=== PATIENT | female | born 1955 ===

== ENCOUNTER 2018-07-03 09:51 | Outpatient (CLI) | payer OTHER | END 2018-07-03 10:10 | disposition home or self-care (01) | LOC: OFIC 805 09:51 | DX: H92.02 Otalgia, left ear (principal); R59.0 Localized enlarged lymph nodes; H61.23 Impacted cerumen, bilateral; J31.2 Chronic pharyngitis ==

== ENCOUNTER 2019-09-15 11:54 | Outpatient (CLI) | payer OTHER | END 2019-09-15 12:20 | disposition home or self-care (01) | LOC: SONOGRAMA 11:54 | PROVIDERS: ATTEND Urology | DX: R31.21 Asymptomatic microscopic hematuria (principal) ==

== ENCOUNTER 2020-10-13 10:20 | Outpatient (CLI) | payer OTHER | END 2020-10-13 10:25 | disposition home or self-care (01) | LOC: TOM 10:20 | PROVIDERS: ATTEND Surgery | DX: Q61.01 Congenital single renal cyst (principal); K43.0 Incisional hernia with obstruction, without gangrene ==

== ENCOUNTER → 2020-11-15 08:43 | Outpatient (CLI) | payer OTHER | END | disposition home or self-care (01) | LOC: LAB 08:43 | PROVIDERS: ATTEND Surgery | DX: D35.02 Benign neoplasm of left adrenal gland (principal) ==

== ENCOUNTER 2021-10-23 14:42 | Outpatient (CLI) | payer OTHER | END 2021-10-23 15:01 | disposition home or self-care (01) | LOC: MAMO-SONO 14:42 | PROVIDERS: ATTEND Obstetrics & Gynecology | DX: N63.10 Unspecified lump in the right breast, unspecified quadrant (principal); N63.20 Unspecified lump in the left breast, unspecified quadrant ==

== ENCOUNTER 2021-10-24 08:27 | Outpatient (CLI) | payer OTHER | END 2021-10-24 08:48 | disposition home or self-care (01) | LOC: RAD 08:27 | PROVIDERS: ATTEND Internal Medicine Cardiovascular Disease | DX: M12.9 Arthropathy, unspecified (principal); M46.48 Discitis, unspecified, sacral and sacrococcygeal region ==

== ENCOUNTER 2021-10-24 12:31 | Outpatient (CLI) | payer OTHER | END 2021-10-24 12:32 | disposition home or self-care (01) | LOC: NUCLEAR 12:31 | PROVIDERS: ATTEND Internal Medicine Cardiovascular Disease | DX: M81.0 Age-related osteoporosis without current pathological fracture (principal); E55.9 Vitamin D deficiency, unspecified ==

== ENCOUNTER 2022-05-02 13:40 | Outpatient (CLI) | payer OTHER | END 2022-05-02 14:42 | disposition home or self-care (01) | LOC: MAMO-SONO 13:40 | PROVIDERS: ATTEND Internal Medicine Cardiovascular Disease | DX: N63.11 Unspecified lump in the right breast, upper outer quadrant (principal) ==

== ENCOUNTER 2022-07-12 10:47 | Outpatient (CLI) | payer OTHER | END 2022-07-12 10:49 | disposition home or self-care (01) | LOC: LAB 10:47 | PROVIDERS: ATTEND Internal Medicine Cardiovascular Disease | DX: E03.9 Hypothyroidism, unspecified (principal); I10 Essential (primary) hypertension; E11.9 Type 2 diabetes mellitus without complications; E78.2 Mixed hyperlipidemia; E55.9 Vitamin D deficiency, unspecified ==

== ENCOUNTER 2022-07-12 12:04 | Outpatient (CLI) | payer OTHER | END 2022-07-12 12:15 | disposition home or self-care (01) | LOC: RAD 12:04 | PROVIDERS: ATTEND Internal Medicine Cardiovascular Disease | DX: M12.9 Arthropathy, unspecified (principal) ==

== ENCOUNTER 2022-10-18 09:34 | Outpatient (CLI) | payer OTHER | END 2022-10-18 09:48 | disposition home or self-care (01) | LOC: TOM 09:34 | PROVIDERS: ATTEND Surgery | DX: K59.09 Other constipation (principal); K62.5 Hemorrhage of anus and rectum; K56.50 Intestinal adhesions [bands], unspecified as to partial versus complete obstruction ==

== ENCOUNTER 2022-10-23 08:35 | Outpatient (CLI) | payer OTHER | END 2022-10-23 08:56 | disposition home or self-care (01) | LOC: SONOGRAMA 08:35 | PROVIDERS: ATTEND Internal Medicine Cardiovascular Disease | DX: M12.9 Arthropathy, unspecified (principal) ==

== ENCOUNTER → 2024-09-07 10:06 | Outpatient (CLI) | payer OTHER ==
[2024-09-07 11:05] LABS: BASO % 0.5 % (0.1-1.2); EOS # 0.14 (0.04-0.54); EOS % 2.5 % (0.7-7.0); HEMATOCRIT 37.7 % (34.1-44.9); HEMOGLOBIN 12.4 g/dL (11.2-15.7); LYMPH # 2.44 (1.18-3.74); LYMPH % 43.2 % (19.3-53.1); MEAN CORPUSCULAR HEMOGLOBIN 31.6 pg (25.6-32.2); MONO # 0.58 (0.24-0.82); MONO % 10.3 % (4.7-12.5); NEUT # 2.45 (1.56-6.13); NEUT % 43.3 % (34.0-71.1); PLATELET COUNT 244 K/uL (163-369); RED BLOOD COUNT 3.93 M/uL (3.93-5.22); RED CELL DISTRIBUTION WIDTH 13.1 % (11.6-14.4)
[2024-09-07 11:19] LABS: PH,URINE 5.5 (5.0-8.0); URINE APPEARANCE Clear; URINE BILIRRUBIN Negative (NEGATIVE); URINE BLOOD Trace; URINE COLOR Yellow; URINE GLUCOSE Negative (NEGATIVE); URINE KETONE Negative (NEGATIVE); URINE LEUKOCYTE Trace; URINE NITRATE Negative; URINE PROTEIN Negative (NEGATIVE)
[2024-09-07 11:21] LABS: URINE BACTERIA 840.6 uL (0.0-1933); URINE EPITHELIAL CELLS 22.2 uL (0.0-38.8); URINE RBC 26.8 uL (0.0-20.8); URINE WBC 10.9 uL (0.0-23.2)
[2024-09-07 11:28] LABS: URINE CAST 0.14 uL (0.0-1.40)
[2024-09-07 12:24] LABS: ALBUMIN 3.9 gm/dL (3.4-5.0); BILIRUBIN TOTAL 0.93 mg/dL (0.3-1.2); CALCIUM 9.1 mg/dL (8.5-10.1); CHOL HDL RATIO 3.6 (0-5.0); CREATININE SERUM 0.86 mg/dL (0.55-1.02); GFR 65.23; GLOBULINA 3.6 G/DL (2.4-3.5); POTASSIUM 4.17 mEq/L (3.5-5.1); TOTAL PROTEIN 7.5 gm/dL (6.4-8.2); TSH 4.54 uIU/mL (0.358-3.74)
[2024-09-07 21:04] LABS: T4 TOTAL 7.5 UG/DL (4.8-13.9)
== END | disposition home or self-care (01) ==
LOC: LAB 10:06
PROVIDERS: ATTEND Internal Medicine Cardiovascular Disease
DX: E11.9 Type 2 diabetes mellitus without complications (principal); I10 Essential (primary) hypertension; E03.9 Hypothyroidism, unspecified; E78.2 Mixed hyperlipidemia; E55.9 Vitamin D deficiency, unspecified; Z12.11 Encounter for screening for malignant neoplasm of colon

== ENCOUNTER 2024-09-08 09:34 | Outpatient (CLI) | payer OTHER ==
[2024-09-08 10:39] LABS: ob NEGATIVE (NEGATIVE)
== END 2024-09-08 09:38 | disposition home or self-care (01) ==
LOC: LAB 09:34
PROVIDERS: ATTEND Internal Medicine Cardiovascular Disease
DX: E11.9 Type 2 diabetes mellitus without complications (principal); I10 Essential (primary) hypertension; E03.9 Hypothyroidism, unspecified; E78.2 Mixed hyperlipidemia; Z12.11 Encounter for screening for malignant neoplasm of colon; E55.9 Vitamin D deficiency, unspecified

== ENCOUNTER 2024-09-09 12:17 | Outpatient (CLI) | payer OTHER | END 2024-09-09 12:40 | disposition home or self-care (01) | LOC: MAMO-SONO 12:17 | PROVIDERS: ATTEND Internal Medicine Cardiovascular Disease | DX: N60.11 Diffuse cystic mastopathy of right breast (principal); N60.12 Diffuse cystic mastopathy of left breast; Z12.31 Encounter for screening mammogram for malignant neoplasm of breast ==